=== PATIENT | female | born 1985 | race Two or more races ===

== ENCOUNTER 2017-05-28 18:15 | Inpatient (IN) | payer OTHER ==
[~2017-05-28] VITALS: Ht 160 cm; Wt 94.3 kg
[2017-05-28] MEDS ORDERED: PREN-380 PO (19:18)
[2017-05-28] MEDS: LACTATED RINGERS 1,000 ML IV SCH (19:54)
[2017-05-28] MEDS ORDERED: OXYTOCIN 10 UNITS/ML VIAL IM SCH (19:55)
[2017-05-28] MEDS ORDERED: CARBOPROST 250 MCG/ML AMP IM PRN (19:55)
[2017-05-28] MEDS ORDERED: AMPICILLIN 2,000 MG in NACL 0.9% MINI-BAG PLUS 100 ML IV SCH (19:55)
[2017-05-28] MEDS ORDERED: PROMETHAZINE 25 MG/ML VIAL IVP PRN (19:55)
[2017-05-28] MEDS ORDERED: METHYLERGONOVINE 0.2 MG/ML AMP IM PRN (19:55)
[2017-05-28] MEDS ORDERED: NALBUPHINE HYDROCHLORIDE 10 MG/ML VIAL IVP PRN (19:55)
[2017-05-28] MEDS ORDERED: OXYTOCIN 20 UNITS in LACTATED RINGERS 1,000 ML IV SCH (20:00)
[2017-05-28] MEDS ORDERED: MISOPROSTOL 25 MCG TAB VG PRN (20:00)
[2017-05-28 20:30] LABS: BASOPHILS # (AUTO) 0.1 K/uL (0.00-0.22); BASOPHILS % (AUTO) 0.6 % (0.0-2.0); EOSINOPHILS # (AUTO) 0.1 K/uL (0-0.4); EOSINOPHILS % (AUTO) 1.1 % (0.0-4.0); HEMATOCRIT 34.7 % (36-48); HEMOGLOBIN 12.2 g/dL (12.0-16.0); LYMPHOCYTES # (AUTO) 1.9 K/uL (2.5-16.5); LYMPHOCYTES % (AUTO) 15.3 % (20.5-51.1); MEAN CORPUSCULAR HEMOGLOBIN 32 pg (27-31); MEAN CORPUSCULAR HGB CONC 35 g/dL (33-37); MEAN CORPUSCULAR VOLUME 91 fL (80-94); MONOCYTES # (AUTO) 0.8 K/uL (0.8-1.0); MONOCYTES % (AUTO) 6.4 % (1.7-9.3); NEUTROPHILS # (AUTO) 9.3 K/uL (1.8-7.7); NEUTROPHILS % (AUTO) 76.6 % (42.2-75.2); PLATELET COUNT (AUTO) 257 K/uL (140-450); RED CELL DISTRIBUTION WIDTH 12.5 % (11.6-13.7); WHITE BLOOD COUNT (AUTO) 12.2 K/uL (4.8-10.8)
[2017-05-28] MEDS ORDERED: AMPICILLIN 2,000 MG VIAL ONE (20:37)
[2017-05-28 20:40] LABS: ANION GAP 14.7 (8-16); CARBON DIOXIDE 22.8 mmol/L (21-32); CREATININE 0.6 mg/dL (0.6-1.3); POTASSIUM 3.5 mmol/L (3.5-5.1)
[2017-05-28 20:40] LABS: APPEARANCE,URINE CLEAR (CLEAR); BILIRUBIN,URINE NEGATIVE (NEGATIVE); BLOOD, URINE NEGATIVE (NEGATIVE); COLOR,URINE YELLOW (YELLOW); LEUKOCYTE ESTERASE ,URINE NEGATIVE (NEGATIVE); NITRITE, URINE NEGATIVE (NEGATIVE); PH,URINE 6.5 (5.0-9.0); UGLUCOSE NEGATIVE (NEGATIVE)
[2017-05-28 20:41] LABS: BARBITURATE, URINE NEG. ng/ml (NEG <=200); BENZODIAZEPINE, URINE NEG. ng/mL (NEG <=200); CANNABINOID, URINE NEG. ng/mL (NEG <=50); COCAINE, URINE NEG. ng/mL (NEG <=300); OPIATE, URINE NEG. ng/mL (NEG <=2000); PHENCYCLIDINE SCREEN,URINE NEG. ng/mL (NEG <=25)
[2017-05-28 20:46] LABS: ALBUMIN 2.5 g/dL (3.4-5.0); TOTAL BILIRUBIN 0.1 mg/dL (0.0-1.0)
[2017-05-29] MEDS ORDERED: AMPICILLIN 1,000 MG VIAL ONE ×4 (00:09→15:11)
[2017-05-29] MEDS ORDERED: MISOPROSTOL 25 MCG TAB ONE (01:07)
[2017-05-29] MEDS: AMPICILLIN 1,000 MG in NACL 0.9% MINI-BAG PLUS 50 ML IV SCH ×3 (01:09→15:00)
[2017-05-29] MEDS: LACTATED RINGERS 1,000 ML IV SCH ×2 (05:32→11:15)
--- NOTE | 2017-05-29 08:54 | NUR ---
PATIENT HAS BEEN SCREENED AND CATEGORIZED LOW NUTRITION RISK. PATIENT WILL BE SEEN WITHIN 7 DAYS OF ADMISSION. 06/03/[address]
[2017-05-30] MEDS ORDERED: PROMETHAZINE 25 MG/ML VIAL ONE (05:34)
[2017-05-30] MEDS ORDERED: NALBUPHINE HYDROCHLORIDE 10 MG/ML VIAL ONE (05:34)
[2017-05-30] MEDS ORDERED: OXYTOCIN 10 UNITS/ML VIAL ONE (07:20)
[2017-05-30] MEDS ORDERED: LIDOCAINE MPF 1% - **ER/OR** 15 ML ONE (07:20)
[2017-05-30] MEDS ORDERED: MEASLES, MUMPS, AND RUBELLA 1 VIAL SQVAC PRN (08:55)
[2017-05-30] MEDS ORDERED: SODIUM PHOSPHATE 118 ML ENEM RC PRN (08:55)
[2017-05-30] MEDS ORDERED: TEMAZEPAM 15 MG CAP PO PRN (08:55)
[2017-05-30] MEDS ORDERED: OXYTOCIN 10 UNITS/ML VIAL IM PRN (08:55)
[2017-05-30] MEDS ORDERED: METHYLERGONOVINE 0.2 MG TAB PO PRN (08:55)
[2017-05-30] MEDS ORDERED: HYDROcodone/APAP 5/325 MG 1 TAB TAB PO PRN (08:55)
[2017-05-30] MEDS ORDERED: METHYLERGONOVINE 0.2 MG/ML AMP IM PRN (08:55)
[2017-05-30] MEDS ORDERED: oxyCODONE/APAP 5/325 MG 1 TAB TAB PO PRN (08:55)
[2017-05-30] MEDS ORDERED: BENZOCAINE/MENTHOL 20%-0.5% 60 GM CAN TP PRN (08:55)
[2017-05-30] MEDS ORDERED: DOCUSATE SOD/SENNA 50/8.6 MG 1 TAB PO SCH (21:00)
[2017-05-30] MEDS ORDERED: IBUPROFEN 800 MG TAB PO PRN (23:55)
[2017-05-31 06:34] LABS: HEMATOCRIT 26.8 % (36-48); HEMOGLOBIN 9.1 g/dL (12.0-16.0)
[2017-05-31] MEDS ORDERED: DOCUSATE SOD/SENNA 50/8.6 MG 1 TAB PO SCH (21:00)
[2017-06-01] MEDS ORDERED: IBUP-1842 PO (14:07)
== END 2017-06-01 15:10 | disposition home or self-care (01) | DRG 560 ==
LOC: OBSVTOIN 18:15 → MLD 18:15 → MFCC 05-30 11:52
PROVIDERS: ADMIT Obstetrics & Gynecology; ATTEND Obstetrics & Gynecology
PROC: 10907ZC Drainage of Amniotic Fluid, Therapeutic from Products of Conception, Via Natural or Artificial Opening (ICD-10-PCS; principal; 2017-05-30)
PROC: 10E0XZZ Delivery of Products of Conception, External Approach (ICD-10-PCS; 2017-05-30)
DX: O69.1XX0 Labor and delivery complicated by cord around neck, with compression, not applicable or unspecified (principal); Z37.0 Single live birth; Z3A.39 39 weeks gestation of pregnancy; Z28.21 Immunization not carried out because of patient refusal
CPT/HCPCS: 36415; 59200; 59409; 80053; 80305; 81003; 85018; 85025; 86592; 86886; 86900; 86901; 87653-90; J0290; J2001; J2300; J2550; J2590; J7120